=== PATIENT | male | born 1980 | race Caucasian/White ===

== ENCOUNTER 2018-06-26 05:55 | Day surgery (SDC) | payer BC ==
[~2018-06-26 05:55] MED LIST: CEFAZOLIN 2 GM/50 ML (PMX) 50 ML IVPB
[2018-06-26] MEDS ORDERED: ROPIVACAINE 0.5 % 30 ML VIAL (06:58)
[2018-06-26] MEDS ORDERED: morphine SULFATE/PF (10 MG/10 ML) INJ (06:59)
[2018-06-26 07:06] LABS: ADD MAN DIFF? NO
[2018-06-26 07:08] LABS: WHITE BLOOD COUNT 8.7 10^3/ul (4.8-10.8)
[2018-06-26 07:08] LABS: BASOPHIL # 0.1 10^3/ul (0.0-0.1); EOSINOPHILS # 0.2 10^3/ul (0.0-0.5); HEMATOCRIT 46.7 % (42.0-52.0); HEMOGLOBIN 15.2 g/dl (14.0-18.0); LYMPHOCYTES # 2.2 10^3/ul (0.8-2.9); LYMPHOCYTES % 25.3 % (15.0-51.0); MEAN CORPUSCULAR HEMOGLOBIN 30.1 pg (29.0-33.0); MEAN CORPUSCULAR HGB CONC 32.5 g/dl (32.0-37.0); MEAN CORPUSCULAR VOLUME 92.5 fl (82.0-101.0); MEAN PLATELET VOLUME 10.5 fl (7.4-10.4); MONOCYTE # 0.6 10^3/ul (0.3-0.9); MONOCYTES % 7.1 % (0.0-11.0); NEUTROPHIL # 5.6 10^3/ul (1.6-7.5); NEUTROPHILS % 64.3 % (39.0-77.0); PLATELET COUNT 325 10^3/UL (140-415); RED BLOOD COUNT 5.05 10^6/ul (4.70-6.10); RED CELL DISTRIBUTION WIDTH 13.1 % (11.5-14.5)
[2018-06-26 07:31] LABS: ALANINE AMINOTRANSFERASE 34 IU/L (13-69); ALBUMIN 4.6 g/dl (3.3-4.9); ALBUMIN/GLOBULIN RATIO 1.17; ALKALINE PHOSPHATASE 83 IU/L (42-121); ANION GAP 11 (5-13); ASPARTATE AMINO TRANSFERASE 32 IU/L (15-46); BILIRUBIN,INDIRECT 0.4 mg/dl (0-1.1); BILIRUBIN,TOTAL 0.4 mg/dl (0.2-1.3); BLOOD UREA NITROGEN 19 mg/dl (7-20); CALCIUM 9.7 mg/dl (8.4-10.2); CARBON DIOXIDE 29 mmol/L (21-31); CHLORIDE 103 mmol/L (97-110); CREATININE 1.01 mg/dl (0.61-1.24); Estimated GFR > 60 mL/min (>60); GLUCOSE 111 mg/dl (70-220); POTASSIUM 4.3 mmol/L (3.5-5.1); SODIUM 143 mmol/L (135-144); TOTAL PROTEIN 8.5 g/dl (6.1-8.1)
[2018-06-26] MEDS ORDERED: MEPERIDINE 100 MG INJ (07:36)
[2018-06-26] MEDS ORDERED: CEFAZOLIN 1 GM INJ (07:36)
[2018-06-26] MEDS ORDERED: LIDOCAINE 2% (SDV) 5 ML INJ (07:36)
[2018-06-26] MEDS ORDERED: PROPOFOL 20 ML (07:36)
[2018-06-26] MEDS ORDERED: ONDANSETRON 4 MG INJ (07:51)
[2018-06-26] MEDS: LIDOCAINE 1% (STERILE-PAK) 30 ML INJ (08:21)
[2018-06-26] MEDS: POLYMYXIN/BACITRACIN 1L IRRIG (08:22)
[2018-06-26] MEDS: BUPIVACAINE 0.5% (SDV) 30 ML INJ (08:22)
[2018-06-26] MEDS ORDERED: OXYCODONE/ACETAMINOPHEN (5/325) TAB PO (09:00)
[2018-06-26] MEDS ORDERED: FENTAnyl 50 MCG/ML VIAL IV ×3 (09:00)
[2018-06-26] MEDS ORDERED: hydrALAzine 20 MG INJ IV (09:00)
[2018-06-26] MEDS ORDERED: ONDANSETRON 4 MG INJ IV (09:00)
[2018-06-26] MEDS ORDERED: MIDAZOLAM 1 MG/ML 2 ML INJ IV (09:00)
[2018-06-26] MEDS ORDERED: LABETALOL HCL 20MG INJ IV (09:00)
[2018-06-26] MEDS ORDERED: MEPERIDINE 25 MG INJ IV (09:00)
[2018-06-26] MEDS ORDERED: METOCLOPRAMIDE 10 MG INJ IV (09:00)
[2018-06-26] MEDS ORDERED: HYDROmorphONE 1 MG/5 ML IV SYRINGE IV (09:00)
[2018-06-26] MEDS ORDERED: EPHEDrine SULFATE 50 MG/5 ML SYG IV (09:00)
[2018-06-26] MEDS ORDERED: DIPHENHYDRAMINE 50 MG INJ IV (09:00)
[2018-06-26] MEDS: BUPIVACAINE 0.25% (MPF) 30 ML INJ (10:30)
[2018-06-26] MEDS: HYDROmorphONE 1 MG/5 ML IV SYRINGE IV ×2 (10:42→11:09)
[2018-06-26] MEDS: OXYCODONE/ACETAMINOPHEN (5/325) TAB PO (11:38)
== END 2018-06-26 12:18 | disposition home or self-care (01) ==
LOC: SDS 05:55
DX: S52.512D Displaced fracture of left radial styloid process, subsequent encounter for closed fracture with routine healing (principal); S52.612D Displaced fracture of left ulna styloid process, subsequent encounter for closed fracture with routine healing; V86.99XD Unspecified occupant of other special all-terrain or other off-road motor vehicle injured in nontraffic accident, subsequent encounter
CPT/HCPCS: 25608; 73090; 80053; 85025